=== PATIENT | male | born 1985 | race Asian ===

== ENCOUNTER 2017-04-03 08:22 | Emergency (ER) | payer MEDICAID ==
[~2017-04-03] VITALS: Ht 177.8 cm; Wt 99.8 kg
[2017-04-03 08:27] VITALS: BP 133/98
--- NOTE | 2017-04-03 08:30 | NUR ---
PATIENT TO BED 7 AT THIS TIME.
--- NOTE | 2017-04-03 08:36 | NUR ---
PATIENT MOVED TO BED 3 AT THIS TIME.
[2017-04-03] MEDS ORDERED: MELO15TA11 PO (08:39)
--- NOTE | 2017-04-03 08:41 | NUR ---
31/M PRESENT TO ER C/O LOWER BACK PAIN x 1 WEEK. PT DENIES INJURY TO BACK. BUT STATES HE HAD RT ANKLE SURGERY ON 11/2016. ALSO STS HX OF SIATICA. NO S/S OF TRAUMA TO SITE NOTED.
--- NOTE | 2017-04-03 08:50 | NUR ---
Patient being evaluated by DR. CARRANZA at bedside.
--- NOTE | 2017-04-03 08:58 | NUR ---
PATIENT PRESENTS TO ED WITH C/O LOWER BACK PAIN . PT STATES . DENIES N/V/D; SKIN IS PINK/WARM/DRY; AAOX4 WITH EVEN AND STEADY GAIT; LUNGS CLEAR BL; HR EVEN AND REGULAR; PT DENIES ANY FEVER, CP, SOB, OR COUGH AT THIS TIME; PATIENT STATES PAIN OF 7/10 AT THIS TIME; VSS; PATIENT POSITIONED FOR COMFORT; HOB ELEVATED; BEDRAILS UP X2; BED DOWN. ER MD MADE AWARE OF PT STATUS.
[2017-04-03] MEDS ORDERED: KETOROLAC 60 MG/2 ML VIAL IM ONE (09:00)
--- NOTE | 2017-04-03 09:37 | NUR ---
Patient discharged with v/s stable. Written and verbal after care instructions given and explained. Patient alert, oriented and verbalized understanding of instructions. Ambulatory with steady gait. All questions addressed prior to discharge. ID band removed. Patient advised to follow up with PMD. Rx of BACLOFEN AND NAPROSYN given. Patient educated on indication of medication including possible reaction and side effects. Opportunity to ask questions provided and answered.
[2017-04-03 09:46] VITALS: BP 134/90
== END 2017-04-03 09:37 | disposition home or self-care (01) ==
LOC: MED 08:22
DX: M54.5 Low back pain (principal); Z79.899 Other long term (current) drug therapy
CPT/HCPCS: 96372; 99283; J1885